=== PATIENT | male | born 2000 ===

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

== ENCOUNTER 2019-06-19 19:04 | Emergency (ER) | payer SELFPAY ==
[~2019-06-19] VITALS: Ht 177.8 cm; Wt 82.1 kg
[~2019-06-19 19:04] MED LIST changes: +Banophen25 MG PO; +CLON.5 PO; +Neurontin600 MG PO; +OXYC5 PO; +Roxicodone5 MG PO; +SENN187 PO
[2019-06-19] MEDS ORDERED: BENZ100A PO (22:58)
== END 2019-06-19 23:11 | disposition home or self-care (01) ==
LOC: ER 19:04
DX: J32.9 Chronic sinusitis, unspecified (principal); R09.82 Postnasal drip; Z79.899 Other long term (current) drug therapy
CPT/HCPCS: 71046; 99283-25

== ENCOUNTER 2019-09-24 16:21 | Emergency (ER) | payer OTHER ==
[~2019-09-24] VITALS: Ht 180.3 cm; Wt 70.3 kg
[~2019-09-24 16:21] MED LIST changes: +BENZ100A PO
== END 2019-09-24 17:46 | disposition home or self-care (01) ==
LOC: ER 16:21
DX: Z20.828 Contact with and (suspected) exposure to other viral communicable diseases (principal)
CPT/HCPCS: 99284; U0002

== ENCOUNTER → 2020-01-01 | Outpatient (CLI) | payer OTHER ==
[2020-01-03 08:11] LABS: HIV SCREEN 4TH GENERATION WRFX Non Reactive (Non Reactive)
[2020-01-05 05:08] LABS: CHLAMYDIA TRACHOMATIS, NAA Positive (Negative); NEISSERIA GONORRHOEAE, NAA Negative (Negative)
== END | disposition home or self-care (01) ==
LOC: LAB EV 17:13 → LAB SHORT 17:13
PROVIDERS: Physician Assistant
DX: Z20.9 Contact with and (suspected) exposure to unspecified communicable disease (principal)
CPT/HCPCS: 86592; 87389; 87491; 87591

== ENCOUNTER → 2025-01-12 | Outpatient (CLI) | payer OTHER ==
[2025-01-13 14:23] LABS: Chlamydia Trachomatis Urine NOT DETECTED (NOT DETECT)
[2025-01-13 14:41] LABS: Neisseria Gonorrhoea Urine DETECTED (NOT DETECT)
== END ==
LOC: LAB 17:15 → LAB SHORT 17:15
PROVIDERS: Physician Assistant
DX: Z72.51 High risk heterosexual behavior (principal)
CPT/HCPCS: 87086; 87491; 87591